=== PATIENT | male | born 1990 | race Caucasian/White ===

== ENCOUNTER 2019-03-07 07:56 | Emergency (ER) | payer SELFPAY ==
[~2019-03-07] VITALS: Ht 177.8 cm; Wt 98.1 kg
[2019-03-07 08:17] VITALS: BP 143/99
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
--- NOTE | 2019-03-07 08:52 | NUR ---
BREAK RN NOTE: PT IN IMAGING AT THIS TIME.
--- NOTE | 2019-03-07 09:09 | NUR ---
emt at bedside to clean lac.
[2019-03-07] MEDS ORDERED: NEOSPORIN OINT. PKT 1 PACKET ONE (09:56)
--- NOTE | 2019-03-07 10:06 | NUR ---
EMT AT BEDSIDE TO APPLY DRESSING AT THIS TIME. PT TOLERATED WELL.
--- NOTE | 2019-03-07 10:32 | NUR ---
Patient given discharge instructions and they have confirmed that they understand the instructions. Patient ambulatory with steady gait.
== END 2019-03-07 10:34 | disposition home or self-care (01) ==
LOC: ED 10:00
DX: S52.615A Nondisplaced fracture of left ulna styloid process, initial encounter for closed fracture (principal); S01.01XA Laceration without foreign body of scalp, initial encounter; S43.401A Unspecified sprain of right shoulder joint, initial encounter; S16.1XXA Strain of muscle, fascia and tendon at neck level, initial encounter; S63.501A Unspecified sprain of right wrist, initial encounter; S60.222A Contusion of left hand, initial encounter; S60.221A Contusion of right hand, initial encounter; Y00.XXXA Assault by blunt object, initial encounter; Y93.89 Activity, other specified; Y92.009 Unspecified place in unspecified non-institutional (private) residence as the place of occurrence of the external cause; Y99.8 Other external cause status
CPT/HCPCS: 12031; 29125; 70450; 72125; 99284